=== PATIENT | male | born 2000 | race Caucasian/White ===

== ENCOUNTER 2024-07-06 15:24 | Emergency (ER) | payer OTHER, SELFPAY ==
[2024-07-06 15:30] VITALS: BP 122/74; PULSE 118; RESP 16; TEMP 37.3; O2SAT 96; BMI 28.2
[2024-07-06 16:38] LABS: Amphetamine Screen Urine Negative (Negative); Barbiturate Screen Urine Negative (Negative); Benzodiazepines Screen Urine POSITIVE (Negative); Cannabinoid Screen Urine Negative (Negative); Cocaine Screen Urine Negative (Negative); Methadone Screen Urine Negative (Negative); Methamphetamines Screen Urine Negative (Negative); Opiate Screen Urine Negative (Negative); Oxycodone Screen Urine Negative (Negative); Phencyclidine Screen Urine Negative (Negative); Tricyclic Antidepressant Urine Negative (Negative)
--- NOTE | 2024-07-06 16:44 | ED.PSYCH ---
HPI - Psych General Date Seen: 07/06/24 Chief Complaint: Psychiatric Problem/Disorder Stated Complaint: mental health Time Seen by Provider: 07/06/24 15:59 Source: patient Mode of arrival: ambulatory Limitations: no limitations History of Present Illness HPI Narrative: Patient is a 23-year-old male with history of schizoaffective disorder and meth abuse presenting to the emergency department for increased hallucinations and some suicidal thoughts. He states he has been clean from methamphetamine since March. Is currently in a recovery center this been there for 1 week. Today he woke up in states his hallucinations have been worse than previously. States he see some shadows in his vision and will hear some voices in the back of his head but states they all static heaving cannot make out what they are same. States he has had hallucinations for quite a while and going differences they seem more pronounced today. Describes his suicide levels a 2/10 and states if he would commit suicide it would be with sheets to hang himself. He has tried to hang myself in the past but states at this time he does not actually want to hurt himself. Denies any homicidal thoughts. I asked if he a feels like he is unsafe at this time he states no. States his main concern at this time so hallucinations and was hoping to have his meds adjusted. Denies fevers, chills, chest pain, shortness of breath, headache, abdominal pain, diarrhea. He states he saw a psychiatrist last week. No meds were adjusted but he states hallucinations were not as bad at that time. Does state he has a history of explosive disorder but his meds help it quite a bit. Related Data Home Medications ?Medication ?Instructions ?Recorded ?Confirmed Lactobacillus rhamnosus GG 15 1 cap PO DAILY 07/06/24 07/06/24 billion cell sprinkle capsule (Culturelle) aluminum-mag hydroxide-simethicone 30 ml PO Q4H PRN 07/06/24 07/06/24 200 mg-200 mg-20 mg/5 mL oral susp (Didi-Lanta) benztropine 2 mg tablet 1 mg PO DAILY 07/06/24 07/06/24 buspirone 15 mg tablet 15 mg PO BID 07/06/24 07/06/24 chlorhexidine gluconate 0.12 % 15 ml buccal BID 07/06/24 07/06/24 mouthwash cyclobenzaprine 5 mg tablet 5 mg PO BID 07/06/24 07/06/24 eszopiclone 3 mg tablet 3 mg PO QHS 07/06/24 07/06/24 fenofibrate PO 07/06/24 lithium carbonate 300 mg capsule 900 mg PO QPM 07/06/24 07/06/24 loperamide 2 mg capsule 2 mg PO QID PRN 07/06/24 07/06/24 (Anti-Diarrheal (loperamide)) lorazepam 1 mg tablet 1 mg PO Q12H PRN 07/06/24 07/06/24 magnesium hydroxide 400 mg/5 mL 30 ml PO DAILY PRN 07/06/24 07/06/24 oral suspension (Milk of Magnesia) melatonin 5 mg capsule mg 07/06/24 naltrexone 50 mg tablet 50 mg PO DAILY 07/06/24 07/06/24 nicotine 21 mg/24 hr daily 1 patch transdermal Q24H 07/06/24 07/06/24 transdermal patch olanzapine 10 mg tablet 10 mg PO QPM 07/06/24 07/06/24 olanzapine 20 mg tablet 20 mg PO QPM 07/06/24 07/06/24 olanzapine 5 mg tablet 5 mg PO BID PRN 07/06/24 07/06/24 risperidone 3 mg tablet (Risperdal) 3 mg PO BID 07/06/24 07/06/24 simethicone 80 mg chewable tablet 80 mg PO QID PRN 07/06/24 07/06/24 (Gas Relief (simethicone)) sulindac 150 mg tablet 150 mg PO BID 07/06/24 07/06/24 venlafaxine 150 mg 150 mg PO DAILY 07/06/24 07/06/24 capsule,extended release 24 hr Allergies Allergy/AdvReac Type Severity Reaction Status Date / Time cephalexin (From [facility]) Allergy Severe Anaphylaxis Verified 07/06/24 15:28 Review of Systems Status of ROS: Reports: 10 or more systems reviewed and unremarkable except as noted in History and below Exam Narrative: Exam Narrative: Const: Well-nourished, Well-developed, in no distress Eyes: PERRL, no conjunctival injection, and symmetrical lids HENT: Atraumatic external nose and ears. Moist mucous membranes. Neck: Symmetric, trachea midline, No thyromegaly. CVS: RRR, No murmurs or gallops. Peripheral pulses 2+ and equal in all extremities RESP: Unlabored respiratory effort. Clear to auscultation bilaterally. GI: Nontender/Nondistended, No rebound or guarding. MSK:Extremities w/o deformity, Normal Active ROM Skin: Warm, Dry. No rashes or lesions. Neuro: Normal Muscle tone, No focal neurological deficits. Psych: Awake, Alert, & Oriented x3. Appropriate mood and affect. Const: Vital Signs, click to edit/add: Vital Signs - 24 hr 07/06/24 15:30 Temperature 99.1 F Pulse Rate [Pulse Oximeter] 118 H Respiratory Rate 16 Blood Pressure [Ri ght Upper Arm] 122/74 Pulse Oximetry 96 Oxygen Delivery Me thod Room Air Course Vital Signs Vital signs: Initial Vital Signs Temperature 99.1 F 07/06/24 15:30 Temperature Source Temporal Artery Scan 07/06/24 15:30 Pulse Rate 118 H 07/06/24 15:30 Respiratory Rate 16 07/06/24 15:30 Blood Pressure 122/74 07/06/24 15:30 Blood Pressure Mean 90 07/06/24 15:30 Blood Pressure Position Sitting 07/06/24 15:30 Pulse Oximetry 96 07/06/24 15:30 Oxygen Delivery Method Room Air 07/06/24 15:30 Vital Signs Temperature 99.1 F 07/06/24 15:30 Pulse Rate 118 H 07/06/24 15:30 Respiratory Rate 16 07/06/24 15:30 Blood Pressure 122/74 07/06/24 15:30 Pulse Oximetry 96 07/06/24 15:30 Oxygen Delivery Method Room Air 07/06/24 15:30 Temperature 99.1 F 07/06/24 15:30 Pulse Rate 118 H 07/06/24 15:30 Respiratory Rate 16 07/06/24 15:30 Blood Pressure 122/74 07/06/24 15:30 Pulse Oximetry 96 07/06/24 15:30 Oxygen Delivery Method Room Air 07/06/24 15:30 MDM - Psych MDM Narrative Medical decision making narrative: Patient is 23-year-old male presenting for increased hallucinations and some relatively mild thoughts of hurting himself. I did speak to the nurse at [facility] and she stated same information that the patient stated. She states overall they do feel comfortable taking him back to recovery center if he is discharged. She states he saw their mental health provider last week as patient stated. We will do a urine drug screen and have him evaluated by [facility]. He is agreeable to this. [facility] spoke to him and feel comfortable with him going back to his recovery home. This seems reasonable. He did tell them that he has a doctor's appointment tomorrow. Patient will be discharged. Lab Data Labs: Lab Results 07/06/24 Range/Units 16:15 Urine Opiates Screen Negative (Negative) Ur Oxycodone Screen Negative (Negative) Urine Methadone Screen Negative (Negative) Ur Barbiturates Screen Negative (Negative) U Tricyclic Antidepress Negative (Negative) Ur Phencyclidine Scrn Negative (Negative) Ur Amphetamines Screen Negative (Negative) U Methamphetamines Scrn Negative (Negative) U Benzodiazepines Scrn POSITIVE A (Negative) Urine Cocaine Screen Negative (Negative) U Marijuana (THC) Screen Negative (Negative) Ur Drug Screen Comment See Note Discharge Plan Discharge Clinical Impression: Hallucinations Patient Disposition: Home, Self-Care Condition: Stable Instructions: Hallucinations (ED) Additional Instructions: Make sure to talk to her psychiatrist again about medication adjustments. Return to emergency department for new or worsening symptoms. Prescriptions: No Action benztropine 2 mg tablet 1 mg PO DAILY buspirone 15 mg tablet 15 mg PO BID chlorhexidine gluconate 0.12 % mouthwash 15 ml buccal BID Culturelle 15 billion cell capsule, sprinkle 1 cap PO DAILY cyclobenzaprine 5 mg tablet 5 mg PO BID eszopiclone 3 mg tablet 3 mg PO QHS fenofibrate PO lithium carbonate 300 mg capsule 900 mg PO QPM melatonin 5 mg capsule naltrexone 50 mg tablet 50 mg PO DAILY olanzapine 20 mg tablet 20 mg PO QPM olanzapine 10 mg tablet 10 mg PO QPM risperidone [Risperdal] 3 mg tablet 3 mg PO BID sulindac 150 mg tablet 150 mg PO BID venlafaxine 150 mg capsule,extended release 24hr 150 mg PO DAILY alum-mag hydroxide-simeth [Didi-Lanta] 200-200-20 mg/5 mL suspension 30 ml PO Q4H PRN loperamide [Anti-Diarrheal (loperamide)] 2 mg capsule 2 mg PO QID PRN lorazepam 1 mg tablet 1 mg PO Q12H PRN magnesium hydroxide [Milk of Magnesia] 400 mg/5 mL suspension 30 ml PO DAILY PRN nicotine 21 mg/24 hr patch 24 hour 1 patch transdermal Q24H olanzapine 5 mg tablet 5 mg PO BID PRN simethicone [Gas Relief (simethicone)] 80 mg tablet,chewable 80 mg PO QID PRN Stand Alone Forms: MyHealth Info Instructions
--- OUTSIDE RECORDS SUMMARY | 2024-07-06 17:45 | XMS_ITS | Continuity of Care Document ---
Author Organization [facility] Address [address] [place] [address] Phone Care Team Providers Care Maintenance Apprentice Name Role Phone Griselda Sanchez Unavailable Unavailable Allergies, Adverse Reactions, Alerts Substance Reaction Status Criticality CEPHALEXIN MONOHYDRATE Active No In formation Medications Medication Instructions Dosage Effective Dates (start - stop) Status Comments ibuprofen 800 mg tablet take 1 tablet by oral route 3 times every day with food as needed 800 MG - Active Bactrim DS 800 mg-160 mg tablet take 1 tablet by oral route every 12 hours 1.00 tablet - Active Procedures Procedure Date Rad Exam, Spine, Lumbosacral; 2 Or 3 Vie ws OFFICE/OUTPATIENT VISIT, EST THER/PROPH/DIAG INJ, SC/IM Triamcinolone acetonide inj X-RAY EXAM OF LOWER LEG MED LIST DOCD IN RCRD OFFICE/OUTPATIENT VISIT, NEW SYST BP LT 130 MM HG Sys bp less 140 DIAST BP < 80 MM HG Putnam bp less 90 Advance Directives Directive Yes / No Effective Date File Name No Information Encounters Encounter Description Practice Location Reason(s) For Visit Diagnoses Date Provider Providers Copied on Encounter [facility], [address], [place], [place], [id number], [place] tel: [phone] [facility] No Information 2 Daniel Villalobos. [address], [place], [address], [place]. tel: [phone] [facility], [address], [place], [place], [id number], [place] tel: [phone] [facility] No Information 2 [facility]. [address], [address], [place], [place], [id number], [place]. tel: [phone] Referring Provider: Facundo Hernandez, [address], [place], [address]. tel:[phone] OFFICE/OUTPAT IENT VISIT, [facility], [address], [place], [place], [id number], [place] tel: [phone] [facility] Acute bilateral low back pain, unspecified whether sciatica presentLack of running water at home ^ 2 [facility]. [address], [place], [address], [place]. tel: [phone] Referring Provider: Griselda Sanchez, [address], [place], [address]. tel:[phone] [facility], [address], [place], [place], [id number], [place] tel: [phone] [facility] No Information 1 [facility]. [address], [address], [place], [place], [id number], [place]. tel:[phone] Referring Provider: Facundo Hernandez, [address], [place], [address]. tel:[phone] OFFICE/OUTPAT IENT VISIT, [facility], [address], [place], [place], [id number], [place] [phone] [facility] establish care (chief complaint) Furuncle of abdominal wallClosed fracture of right tibia and fibula, sequela ^Unspecified fracture of shaft of right fibula, sequela David Loredo. [address], [place], [address], [place]. [phone] Referring Provider: Facundo Hernandez, [address], [place], [address]. tel:[phone] Family History Family Member Type Diagnosis Age At Onset No Information Payers Payer name Insurance type Covered green party ID Armida godinez(s) [employer] [facility] [id number] Social History Type Description Quantity Date Captured Comments Alcohol Use Details Unknown Caffeine Use Details Unknown Tobacco Use Status Smoking Status No Information Sex Male Chief Complaint And Reason For Visit No Information Reason For Referral Reason For Referral No Information Plan Of Treatment Date Type Action Status Future Order: Radiology Order WINNIE MBAR 3v (21201), Added on: New Future Order: Radiology Order X- ray of right tibia and fibula, AP and lateral views ([id number]), Added on: New History Of Present Illness Encounter Date Complaint History Of Prese nt Illness establish care Pt here to est. care Pt C/O of a boil on the L abdomen/pelvic area X 1 week says it is painful, with yellow drainage and foul odor Functional Status Date Functional Assessmen t No Information Instructions Date Instruction Additional Infor mation Patient provided wit h numbers for [employer], [employer], and other local food pantries. Related to Lack of running water at home ^ Kenalog 60 mg given. If symptoms do not improve, patient will return. Will send ibuprofen 800mg tid prn. Related to Acute bilateral low back pain, unspecified whether sciatica present Assessments Type Assessment Date No Information Patient Care Teams Name Effective Dates (start - stop) Status Members No Information
== END 2024-07-06 17:55 | disposition home or self-care (01) ==
PROVIDERS: Emergency Provider Student in an Organized Health Care Education/Training Program
DX: R44.3 Hallucinations, unspecified (principal); R45.851 Suicidal ideations
CPT/HCPCS: 80306; 99283; 99284